=== PATIENT | male | born 1965 | race Caucasian/White ===

== ENCOUNTER → 2018-02-22 09:41 | Outpatient (CLI) | payer OTHER, SELFPAY ==
[2018-02-22 10:23] LABS: Add Manual Diff / Slide Review NO; Eosinophils Percent Auto 3.7 % (2-4); Hematocrit 45.3 % (41-53); Hemoglobin 16.1 g/dL (13.5-17.5); Lymphocytes Percent Auto 35.6 % (25-40); Mean Corpuscular HGB Conc 35.5 % (30-36); Mean Corpuscular Hemoglobin 31.3 PG (26-34); Monocytes Percent Auto 8.5 % (3-14); Neutrophils Absolute Auto 2600 /uL (3000-5900); Neutrophils Percent Auto 51.2 % (50-75); Platelet Count 240 X10^3/uL (150-400); Red Blood Cell Count 5.14 X10^6/uL (4.5-5.9); Red Cell Distribution Width 12.9 % (11.6-14.8); White Blood Cell Count 5.1 X10^3/uL (4.5-11.0)
[2018-02-22 11:30] LABS: Alanine Aminotransferase 52 IU/L (21-72); Albumin 4.3 g/dL (3.5-5.0); Albumin Globulin Ratio 1.3 (1.0-2.8); Alkaline Phosphatase 55 U/L (38-126); Aspartate Aminotransferase 29 IU/L (17-59); BUN Creatinine Ratio 16.4 (6-22); Bilirubin Total 0.7 mg/dL (0.2-1.3); Blood Urea Nitrogen 18 mg/dL (9-20); Calcium 9.3 mg/dL (8.4-10.2); Carbon Dioxide 24 mmol/L (22-32); Chloride 106 mmol/L (98-107); Cholesterol 168 mg/dL (140-199); Estimated Glomerular Filt Rate > 60.0 mL/min (>60); Globulin 3.2 g/dL (1.7-4.1); Glucose 100 mg/dL (70-100); HDL Cholesterol 35 mg/dL (40-60); HEMOLYSIS < 15 (0-50); LDL Cholesterol Calculated 94 mg/dL (<100); Potassium 4.2 mmol/L (3.4-5.1); Sodium 142 mmol/L (137-145); Total Protein 7.5 g/dL (6.3-8.2); Triglycerides 196 mg/dL (35-150)
== END ==
PROVIDERS: Family Provider Nurse Practitioner; PCP Nurse Practitioner; Visit Provider Internal Medicine
DX: E66.9 Obesity, unspecified (principal); E78.5 Hyperlipidemia, unspecified; K21.9 Gastro-esophageal reflux disease without esophagitis
CPT/HCPCS: 36415; 80053; 80061; 85025

== ENCOUNTER → 2019-02-08 16:10 | Outpatient (CLI) | payer OTHER, SELFPAY ==
--- NOTE | 2019-02-08 16:13 | DI.RAD.S_ITS ---
PROCEDURE: XR CHEST 2V INDICATIONS: cough TECHNIQUE: 2 views of the chest were acquired. COMPARISON: [facility], , CHEST 2 VIEW, 07/19/2016, 10:40. CXR 06/02/2015, 10/22/2014. FINDINGS: Surgical changes and devices: None. Lungs and pleura: Lungs are clear. Mild prominence of the pulmonary vascular markings. No pleural effusions or pneumothorax. Mediastinum: Mediastinal contours are normal. Heart size is normal. Bones and chest wall: No suspicious bony abnormalities. Soft tissues appear unremarkable. IMPRESSION: Prominence of the pulmonary vascular markings suggestive of mild fluid overload/CHF. No focal consolidation. Dictated by: Gibson Lilly M.D. on 02/08/2019 at 17:06 Approved by: Gibson Lilly M.D. on 02/08/2019 at 17:07
== END ==
PROVIDERS: PCP Internal Medicine; Visit Provider Internal Medicine
DX: R05 Cough (principal)
CPT/HCPCS: 71046

== ENCOUNTER → 2019-03-02 14:48 | Outpatient (CLI) | payer OTHER, SELFPAY ==
--- NOTE | 2019-03-09 15:02 | PM.PFT.1 ---
Pulmonary Function Test Referral & Results Date Patient Seen: 03/02/19 Requesting provider: Marquis Mccormack Indication: Cough Results: The spirometry demonstrates an FVC of 5.21 L which is 118% of predicted. The FEV1 was measured at 4.0 L which is 118% of predicted. The FEV1/FVC ratio was 77 which is 99% of predicted. Following the administration of bronchodilator there was no appreciable change to above normal numbers. Lung volumes show an SVC of 5.27 L which is 120% of predicted. The diffusing capacity was measured at 25.68 which is 90% of predicted. The maximum voluntary ventilation was normal Interpretation: This study demonstrates normal pulmonary function
== END ==
PROVIDERS: PCP Internal Medicine; Visit Provider Internal Medicine
DX: R05 Cough (principal)
CPT/HCPCS: 94060; 94726; 94729

== ENCOUNTER 2019-05-10 14:32 | Emergency (ER) | payer OTHER, SELFPAY ==
[2019-05-10 14:43] VITALS: BP 118/80; PULSE 60; RESP 12; TEMP 36.7; O2SAT 97; BMI 32.2
--- NOTE | 2019-05-10 14:43 | DI.RAD.S_ITS ---
PROCEDURE: XR CHEST 1V INDICATIONS: chest pain TECHNIQUE: One view of the chest was acquired. COMPARISON: [facility], CR, XR CHEST 2V, 02/08/2019, 16:13. FINDINGS: Surgical changes and devices: None. Lungs and pleura: Lungs are clear. No pleural effusions or pneumothorax. Mediastinum: Mediastinal contours appear normal. Heart size is normal. Bones and chest wall: No suspicious bony lesions. Overlying soft tissues appear unremarkable. IMPRESSION: No acute cardiopulmonary pathology. Dictated by: Yovanny Posey M.D. on 05/10/2019 at 15:28 Approved by: Yovanny Posey M.D. on 05/10/2019 at 15:30
--- NOTE | 2019-05-10 14:57 | PC.NURSE ---
Pt recently flew to [place]. Pt has a 6 month hx of cough and pulmonary issues. Today he is feeling more SOB than he normally does.
--- NOTE | 2019-05-10 14:58 | ED_ITS ---
HPI - Chest Pain General Chief Complaint: Chest Pain Stated Complaint: chest pains Time Seen by Provider: 05/10/19 14:39 Source: patient Mode of arrival: Ambulatory Limitations: no limitations History of Present Illness HPI narrative: Patient is a 53-year-old male who presents with left-sided chest pain which started 2 hours ago. 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 It seems to be in 1 spot constant leave there no radiation of pain. Nothing makes it better or worse. He has also been having a persistent cough for the last 6 months which is currently being worked up. He was seen by horse doctor ordered a CT of his chest which was not yet done due to a scheduling and location issue. He sometimes gets short of breath when he walks he does not know any significant worsening shortness of breath right now. [place] recently [place] 2 [place] ago. He denies any hemoptysis. No shortness of breath does not seem to be new or worse however the left-sided chest discomfort is. He is not wanting anything the chest discomfort right now. MD complaint: chest pain Onset (ago): hour(s) (2) Duration: constant Onset: during rest Pain location: left chest Severity: moderate Quality: aching Pain radiation: none Relieving factors: nothing Exacerbating factors: nothing Context: recent travel Related Data Home Medications Medication Instructions Recorded Confirmed Resmed Airsense 10 CPAP #1 ea 10/10/18 05/10/19 albuterol sulfate 1 - 2 puff INHALATION PRN PRN 05/10/19 05/10/19 atorvastatin [Lipitor] 20 mg PO BEDTIME 05/10/19 05/10/19 benzonatate 200 mg PO Q8H PRN 05/10/19 05/10/19 codeine sulfate 30 mg PO PRN PRN 05/10/19 Previous Rx's Medication Instructions Recorded fluticasone propionate 50 2 spray NASAL BEDTIME #16 gram 02/08/19 mcg/actuation nasal spray,suspension Allergies Allergy/AdvReac Type Severity Reaction Status Date / Time No Known Drug Allergies Allergy Verified 05/10/19 14:43 Review of Systems Constitutional Constitutional: Denies chills, Denies fever(s), Denies lethargy and Denies weakness ENT Ears, Nose, Mouth, and Throat: Denies change in voice, Denies neck pain and Denies sore throat Cardiovascular Cardiovascular: Reports as per HPI, Reports chest pain, Denies pedal edema, Denies edema, Denies irregular heart rhythm and Denies lightheadedness Respiratory Respiratory: Reports cough, Denies hemoptysis, Denies pain with cough and Denies wheezing Gastrointestinal Gastrointestinal: Denies abdominal pain, Denies change in bowel habits, Denies diarrhea, Denies nausea and Denies vomiting Genitourinary Genitourinary: Denies hematuria, Denies flank pain, Denies urinary incontinence and Denies urinary urgency Musculoskeletal Musculoskeletal: Denies neck pain Integumentary/Breasts Skin/Breast: Denies pruritus, Denies erythema, Denies rash and Denies wounds Neurologic Neurologic: Denies weakness Allergic/Immunologic Allergic/Immunologic: Denies wheezing Patient History Medical History Asthma (Inactive) Chicken pox (Resolved ~1975) Chronic back pain (Inactive ~1999) Chronic cough (Chronic) GERD (gastroesophageal reflux disease) (Chronic 06/29/11) Obesity (Resolved 02/04/11) Obsessive compulsive disorder (Inactive) Obstructive sleep apnea (Chronic) Other and unspecified hyperlipidemia (Chronic 06/29/11) Surgical History Anesthesia (Resolved) History of hernia repair (Resolved ~2000) Torsion of left testicle (Resolved) Umbilical hernia (Resolved ~11/2013) Family History Father History of heart disease Mother Stroke Social History marital status: number of children: 5 household members: spouse and children lives independently: Yes caregiver/support person: No housing: house pets and animals: Yes education level: master's degree occupational status: employed current occupational exposures/hazards: Yes 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 1 glass of wine a week) substance use type: does not use alcohol intake frequency: holidays/special occasions only Substance Use Type: does not use Exam Initial Vital Signs Initial Vital Signs: Vital Signs Temperature 98.0 F 05/10/19 14:43 Pulse Rate 60 05/10/19 14:43 Respiratory Rate 12 05/10/19 14:43 Blood Pressure 118/80 05/10/19 14:43 Pulse Oximetry 97 05/10/19 14:43 GENERAL: Alert well-appearing middle-aged male no acute distress HEENT: Head atraumatic,EOMI, pupils reactive, face symmetric, moist mucous membranes CARDIOVASCULAR: Regular rate and rhythm without murmurs, rubs or gallops. Pain is not reproducible to palpation RESPIRATORY: Breath sounds equal bilaterally, no wheezes rales or rhonchi. ABDOMEN: Soft, nontender. Normoactive bowel sounds all 4 quadrants. No guarding or rebound. EXTREMITIES: Normal range of motion, no clubbing or edema. Neurovascularly intact NEUROLOGICAL: Alert and oriented x4.Normal gait and speech. SKIN: Warm, dry, no laceration, no petechiae, no rashes or lesions. Scores HEART Score Heart Score history: Slightly Suspicious Heart Score EKG: Normal Heart Score Age: 45-64 years old Heart Score risk factors: No known risk factors Heart Score troponin: < or = to normal limit Heart Score Total: 1 Course Orders Ordered: ED Orders 05/10/19 14:43 XR chest 1V Stat EKG-12 Lead Stat 05/10/19 14:50 B Type Natriuretic Peptide Stat Complete Blood Count AUTO DIFF Stat Comprehensive Metabolic Panel Stat Lipase Stat Partial Thromboplastin Time Stat Prothrombin Time INR Stat Troponin & CK Cardiac Panel Stat 05/10/19 15:09 CT angio chest PE protocol Stat 05/10/19 16:55 Troponin I Stat Vital Signs Vital signs: Vital Signs - 8 hr 05/10/19 14:43 05/10/19 14:59 05/10/19 15:00 Temperature 98.0 F Pulse Rate 60 76 71 Respiratory Rate 12 19 15 Blood Pressure 118/80 Blood Pressure [Right Arm] 118/80 120/77 Pulse Oximetry 97 93 MDM - Chest Pain Lab Data Attestation: I reviewed the patient's lab results. Result diagrams: 05/10/19 14:50 05/10/19 14:50 Labs: Lab Results 05/10/19 05/10/19 05/10/19 Range/Units 14:50 14:50 14:50 WBC 6.0 (4.5-11.0) X10^3/uL RBC 4.99 (4.5-5.9) X10^6/uL Hgb 15.6 (13.5-17.5) g/dL Hct 44.6 (41-53) % MCV 89.4 (80-100) fL MCH 31.2 (26-34) PG MCHC 34.9 (30-36) % RDW 13.2 (11.6-14.8) % Plt Count 246 (150-400) X10^3/uL Neut % (Auto) 56.3 (50-75) % Lymph % (Auto) 31.9 (25-40) % [place] % (Auto) 7.9 (3-14) % Eos % (Auto) 3.0 (2-4) % Baso % (Auto) 0.9 (0-2) % Neut # (Auto) 3400 (9910-2467) /uL Lymph # (Auto) 1900 (5418-6171) /uL [place] # (Auto) 500 (0-900) /uL Eos # (Auto) 200 (0-450) /uL Baso # (Auto) 100 (0-100) /uL PT 10.9 (10.1-12.7) SECONDS INR 0.9 (0.9-1.3) APTT 31 (26.4-36.2) SECONDS Sodium 139 (137-145) mmol/L Potassium 4.0 (3.4-5.1) mmol/L Chloride 105 (98-107) mmol/L Carbon Dioxide 25 (22-32) mmol/L BUN 20 (9-20) mg/dL Creatinine 1.00 (0.66-1.25) mg/dL Estimated GFR > 60.0 (>60) mL/min BUN/Creatinine Ratio 20.0 (6-22) Glucose 92 (70-100) mg/dL Calcium 9.5 (8.4-10.2) mg/dL Total Bilirubin 0.6 (0.2-1.3) mg/dL AST 37 (17-59) IU/L ALT 49 (<50) IU/L Alkaline Phosphatase 55 (38-126) U/L Total Creatine Kinase 182 H (55-170) U/L CK-MB (CK-2) 1.78 (<2.37) ng/mL CK-MB (CK-2) Rel Index 1.0 L (1.5-5.0) % Troponin I < 0.012 (0.01-0.034) ng/mL B-Natriuretic Peptide (<100) Total Protein 7.7 (6.3-8.2) g/dL Albumin 4.8 (3.5-5.0) g/dL Globulin 2.9 (1.7-4.1) g/dL Albumin/Globulin Ratio 1.7 (1.0-2.8) Lipase 110 (23-300) U/L 05/10/19 05/10/19 Range/Units 14:50 16:55 WBC (4.5-11.0) X10^3/uL RBC (4.5-5.9) X10^6/uL Hgb (13.5-17.5) g/dL Hct (41-53) % MCV (80-100) fL MCH (26-34) PG MCHC (30-36) % RDW (11.6-14.8) % Plt Count (150-400) X10^3/uL Neut % (Auto) (50-75) % Lymph % (Auto) (25-40) % [place] % (Auto) (3-14) % Eos % (Auto) (2-4) % Baso % (Auto) (0-2) % Neut # (Auto) (7301-4183) /uL Lymph # (Auto) (7435-2600) /uL [place] # (Auto) (0-900) /uL Eos # (Auto) (0-450) /uL Baso # (Auto) (0-100) /uL PT (10.1-12.7) SECONDS INR (0.9-1.3) APTT (26.4-36.2) SECONDS Sodium (137-145) mmol/L Potassium (3.4-5.1) mmol/L Chloride (98-107) mmol/L Carbon Dioxide (22-32) mmol/L BUN (9-20) mg/dL Creatinine (0.66-1.25) mg/dL Estimated GFR (>60) mL/min BUN/Creatinine Ratio (6-22) Glucose (70-100) mg/dL Calcium (8.4-10.2) mg/dL Total Bilirubin (0.2-1.3) mg/dL AST (17-59) IU/L ALT (<50) IU/L Alkaline Phosphatase (38-126) U/L Total Creatine Kinase (55-170) U/L CK-MB (CK-2) (<2.37) ng/mL CK-MB (CK-2) Rel Index (1.5-5.0) % Troponin I < 0.012 (0.01-0.034) ng/mL B-Natriuretic Peptide < 100 (<100) Total Protein (6.3-8.2) g/dL Albumin (3.5-5.0) g/dL Globulin (1.7-4.1) g/dL Albumin/Globulin Ratio (1.0-2.8) Lipase (23-300) U/L Imaging Data Chest x-ray: Radiologist's impression: PROCEDURE: XR CHEST 1V INDICATIONS: chest pain TECHNIQUE: One view of the chest was acquired. COMPARISON: [facility], CR, XR CHEST 2V, 02/08/2019, 16:13. FINDINGS: Surgical changes and devices: None. Lungs and pleura: Lungs are clear. No pleural effusions or pneumothorax. Mediastinum: Mediastinal contours appear normal. Heart size is normal. Bones and chest wall: No suspicious bony lesions. Overlying soft tissues appear unremarkable. IMPRESSION: No acute cardiopulmonary pathology. Dictated by: Yovanny Posey M.D. on 05/10/2019 at 15:28 CT scan - chest: Radiologist's impression: PROCEDURE: CT ANGIO CHEST PE PROTOCOL INDICATIONS: shortness of breath chest pain TECHNIQUE: After the administration of intravenous contrast, 2 mm thick sections acquired from the pulmonary apices to the posterior costophrenic angles. 3-dimensional maximum intensity projection (MIP) coronal and sagittal reformats were then acquired through the thorax. For radiation dose reduction, the following was used: automated exposure control, adjustment of mA and/or kV according to patient size. COMPARISON: [facility], CR, XR CHEST 1V, 05/10/2019, 14:50. [facility], CT, CHEST ABDOMEN WITH CONTRAST, 10/28/2008, 16:38. [facility], CT, PE STUDY (CTA CHEST), 07/15/2012, 13:01. FINDINGS: Image quality: Excellent. Pulmonary arteries: Pulmonary arteries are normal in size, and demonstrate no intraluminal filling defects to suggest central pulmonary embolism. Lungs and pleura: Lungs are clear. There are a couple of nodules in the right lower lobe measuring 4 mm and 5 mm (series 5 image 167 and 211); both are slightly enlarged since 07/15/2012 (both previously measured 3 mm). There is a 5 mm nodule in the left lower lobe (series 5 image 202) unchanged since 07/15/2012. No pleural effusions or pneumothorax. Central and peripheral airways are patent. Mediastinum: Heart size is normal, without pericardial effusion. No mediastinal or hilar adenopathy. Thoracic aorta is normal in caliber and enhancement. Esophagus is normal in caliber, without hiatal hernia. Bones and chest wall: No suspicious bony lesions. Ribs and thoracic spine appear intact throughout. Thyroid gland is normal. No axillary or supraclavicular adenopathy. Abdomen: Visualized upper abdominal solid organs appear normal in the early arterial phase of enhancement. There is a 9 mm low density nodule in central liver, probably a cyst. IMPRESSION: 1. No evidence for acute pulmonary embolism. 2. Bilateral subcentimeter pulmonary nodules in lower lobes. The right lower lobe nodules demonstrate minimal interval enlargement since 07/15/2012. The left lower lobe nodule has been stable. These nodules are most likely benign. 3. A 9 mm low density nodule in the central liver, statistically likely a cyst. Dictated by: Kandy Barry M.D. on 05/10/2019 at 15:58 ECG Data Attestation: I personally reviewed and interpreted this ECG as follows: Prior ECG tracings: available for review Interpretation: Normal sinus rhythm rate 65 p.r. interval [address] changes no T-wave inversions similar to previous EKGs MDM Narrative Medical decision making narrative: The patient's pain is improved. He has 2- troponins normal EKG CT is negative. At this time I recommend he follow up with his horse doctor. He is given a disc of his CT. Patient was not noted to have cough while in the ED. However with the amount of coughing that he is describing is possible that chest pain is more related to musculoskeletal issues such as costochondritis. I discussed all findings with the patient and spouse, Education has been performed regarding treatment plan, diagnosis, warning signs and symptoms and all concerns have been addressed. Verbally agree with and understood all of the above. Discharge Plan Departure Patient Disposition: Home Clinical Impression: Atypical chest pain Discharge Date/Time: 05/10/19 17:54 Instructions: DI for Atypical Chest Pain Activity Restrictions/Additional Instructions: *You have been diagnosed with atypical chest pain *What to do: At this time you are low risk for cardiac issue however it is still recommended that follow up with her PCP you may require further cardiac evaluation and testing. You did not have a stress test today Please call your horse doctor you have been given a copy of CT and the report *Continue to take medications as directed *Follow up with your primary care provider in 2-3 days *Return to ER if you should have worsening chest pain, increasing shortness of breath or any new, worsening or concerning symptoms Prescriptions: No Action fluticasone propionate 50 mcg/actuation spray,suspension 2 spray NASAL BEDTIME Qty: 16 RF: 0 benzonatate 200 mg capsule 200 mg PO Q8H PRN (Reason: Cough) RF: 0 codeine sulfate 30 mg tablet 30 mg PO PRN PRN (Reason: Cough) RF: 0 albuterol sulfate 90 mcg/actuation HFA aerosol inhaler 1 - 2 puff INHALATION PRN PRN (Reason: Shortness Of Breath) RF: 0 atorvastatin [Lipitor] 20 mg tablet 20 mg PO BEDTIME RF: 0 (DME) Resmed Airsense 10 CPAP Qty: 1 RF: 0 Referrals: Marquis Mccormack MD [Primary Care Provider] -
[2019-05-10 14:59] VITALS: BP 118/80; PULSE 76; RESP 19; O2SAT 93
[2019-05-10 15:00] VITALS: BP 120/77; PULSE 71; RESP 15
[2019-05-10 15:01] LABS: Add Manual Diff / Slide Review NO; Basophils Absolute Auto 100 /uL (0-100); Basophils Percent Auto 0.9 % (0-2); Eosinophils Absolute Auto 200 /uL (0-450); Hematocrit 44.6 % (41-53); Hemoglobin 15.6 g/dL (13.5-17.5); Lymphocytes Absolute Auto 1900 /uL (1100-4500); Lymphocytes Percent Auto 31.9 % (25-40); Mean Corpuscular HGB Conc 34.9 % (30-36); Mean Corpuscular Hemoglobin 31.2 PG (26-34); Mean Corpuscular Volume 89.4 fL (80-100); Monocytes Absolute Auto 500 /uL (0-900); Monocytes Percent Auto 7.9 % (3-14); Neutrophils Absolute Auto 3400 /uL (1500-7000); Neutrophils Percent Auto 56.3 % (50-75); Platelet Count 246 X10^3/uL (150-400); Red Blood Cell Count 4.99 X10^6/uL (4.5-5.9); Red Cell Distribution Width 13.2 % (11.6-14.8)
--- NOTE | 2019-05-10 15:06 | PC.NURSE ---
reports, coughing since december, today with left chest discomfort. had pulmonary exam, respiratory albuterol without relief. has been traveling from [place] and [place], denies fever. vomiting due to coughing. spouse at bs. alert and awake, skin warm dry pink,
--- NOTE | 2019-05-10 15:09 | DI.CT.S_ITS ---
PROCEDURE: CT ANGIO CHEST PE PROTOCOL INDICATIONS: shortness of breath chest pain TECHNIQUE: After the administration of intravenous contrast, 2 mm thick sections acquired from the pulmonary apices to the posterior costophrenic angles. 3-dimensional maximum intensity projection (MIP) coronal and sagittal reformats were then acquired through the thorax. For radiation dose reduction, the following was used: automated exposure control, adjustment of mA and/or kV according to patient size. COMPARISON: [facility], CR, XR CHEST 1V, 05/10/2019, 14:50. [facility], CT, CHEST ABDOMEN WITH CONTRAST, 10/28/2008, 16:38. [facility], CT, PE STUDY (CTA CHEST), 07/15/2012, 13:01. FINDINGS: Image quality: Excellent. Pulmonary arteries: Pulmonary arteries are normal in size, and demonstrate no intraluminal filling defects to suggest central pulmonary embolism. Lungs and pleura: Lungs are clear. There are a couple of nodules in the right lower lobe measuring 4 mm and 5 mm (series 5 image 167 and 211); both are slightly enlarged since 07/15/2012 (both previously measured 3 mm). There is a 5 mm nodule in the left lower lobe (series 5 image 202) unchanged since 07/15/2012. No pleural effusions or pneumothorax. Central and peripheral airways are patent. Mediastinum: Heart size is normal, without pericardial effusion. No mediastinal or hilar adenopathy. Thoracic aorta is normal in caliber and enhancement. Esophagus is normal in caliber, without hiatal hernia. Bones and chest wall: No suspicious bony lesions. Ribs and thoracic spine appear intact throughout. Thyroid gland is normal. No axillary or supraclavicular adenopathy. Abdomen: Visualized upper abdominal solid organs appear normal in the early arterial phase of enhancement. There is a 9 mm low density nodule in central liver, probably a cyst. IMPRESSION: 1. No evidence for acute pulmonary embolism. 2. Bilateral subcentimeter pulmonary nodules in lower lobes. The right lower lobe nodules demonstrate minimal interval enlargement since 07/15/2012. The left lower lobe nodule has been stable. These nodules are most likely benign. 3. A 9 mm low density nodule in the central liver, statistically likely a cyst. Dictated by: Kandy Barry M.D. on 05/10/2019 at 15:58 Approved by: Kandy Barry M.D. on 05/10/2019 at 16:10
[2019-05-10 15:12] LABS: INR 0.9 (0.9-1.3); Prothrombin Time 10.9 SECONDS (10.1-12.7)
[2019-05-10 15:14] LABS: PTT Partial Thromboplastin Tim 31 SECONDS (26.4-36.2)
[2019-05-10 15:15] LABS: Alanine Aminotransferase 49 IU/L (<50); Albumin 4.8 g/dL (3.5-5.0); Albumin Globulin Ratio 1.7 (1.0-2.8); Alkaline Phosphatase 55 U/L (38-126); Aspartate Aminotransferase 37 IU/L (17-59); Bilirubin Total 0.6 mg/dL (0.2-1.3); Blood Urea Nitrogen 20 mg/dL (9-20); Calcium 9.5 mg/dL (8.4-10.2); Carbon Dioxide 25 mmol/L (22-32); Chloride 105 mmol/L (98-107); Creatine Kinase 182 U/L (55-170); Estimated Glomerular Filt Rate > 60.0 mL/min (>60); Globulin 2.9 g/dL (1.7-4.1); Glucose 92 mg/dL (70-100); HEMOLYSIS < 15 (0-50); Lipase 110 U/L (23-300); Sodium 139 mmol/L (137-145); Total Protein 7.7 g/dL (6.3-8.2)
[2019-05-10 15:27] LABS: Troponin I < 0.012 ng/mL (0.01-0.034)
[2019-05-10 15:31] LABS: Creatine Kinase MB 1.78 ng/mL (<2.37)
[2019-05-10 15:38] LABS: B Type Natriuretic Peptide < 100 (<100)
[2019-05-10 17:24] LABS: Troponin I < 0.012 ng/mL (0.01-0.034)
== END 2019-05-10 17:54 | disposition home or self-care (01) ==
PROVIDERS: Emergency Provider Emergency Medicine; PCP Internal Medicine
DX: R07.89 Other chest pain (principal); R06.02 Shortness of breath; R05 Cough
CPT/HCPCS: 36415; 71045; 71275; 80053; 82550; 82553; 83690; 83880; 84484; 85025; 85610; 85730; 93005; 93010; 99283; 99285; Q9967

== ENCOUNTER → 2019-07-23 16:15 | Outpatient (CLI) | payer OTHER, SELFPAY ==
--- NOTE | 2019-07-23 16:17 | DI.RAD.S_ITS ---
PROCEDURE: XR WRIST LT MIN 3V INDICATIONS: left wrist pain for 1 month TECHNIQUE: 4 views of the wrist were acquired. COMPARISON: None. FINDINGS: Bones: No fractures or dislocations. No suspicious bony lesions. Scaphoid view: No trauma the scaphoid and is found. Soft tissues: No suspicious soft tissue calcifications. IMPRESSION: Source of persistent wrist pain is not seen. No trauma found. Dictated by: Hardik Gardiner M.D. on 07/23/2019 at 17:37 Approved by: Hardik Gardiner M.D. on 07/23/2019 at 17:38
== END ==
PROVIDERS: PCP Internal Medicine; Visit Provider Internal Medicine
DX: M25.532 Pain in left wrist (principal)
CPT/HCPCS: 73110

== ENCOUNTER → 2019-09-11 13:46 | Outpatient (CLI) | payer OTHER, SELFPAY ==
--- NOTE | 2019-09-11 | DI.MRI.S_ITS ---
PROCEDURE: MR WRIST LT W CON INDICATIONS: Pain in left wrist TECHNIQUE: After the administration of 3-4 mL of dilute intra-articular Gadolinium contrast into the radiocarpal compartment, coronal T1 spin echo with fat saturation and T2 fast spin echo with fat saturation, axial T1 spin echo and T2 fast spin echo with fat saturation, sagittal T1 spin echo with and without fat saturation through the wrist. COMPARISON: [facility], , [place] WRIST INJECTION MR/CT LT, 09/11/2019, 13:09. FINDINGS: Image quality: Excellent. Bones and cartilage: The carpal bones are normally aligned. No bone marrow contusions or fractures. No evidence for avascular necrosis. Proximal lunate subchondral mild cystic change. Overlying cartilage surfaces appear normal. Carpal ligaments: The scapholunate and lunotriquetral ligaments appear intact, without gadolinium extravasation into the mid-carpal compartment. The radioscaphocapitate and radiolunotriquetral ligaments appear intact. The arcuate ligament and short radiolunate ligament also appear normal. The dorsal intercarpal and radiotriquetral ligaments appear intact. On sagittal images, the pisohamate ligament appears intact. Triangular fibrocartilage complex: The triangular fibrocartilage disc, with its styloid and foveal lamina, appears intact. No gadolinium extravasation into the distal radioulnar joint. The adjacent meniscal homolog appears normal. The ulnar collateral ligament appears intact. The extensor carpi ulnaris tendon is normal in location and morphology. Tendons and soft tissues: The carpal tunnel structures appear normal, including the median nerve. The ulnar nerve appears normal within Guyon's canal. All six extensor tendon compartments demonstrate normal morphology, without pathologic tendon sheath fluid. No soft tissue ganglion cysts. IMPRESSION: Overall, negative examination. No internal derangement. Questionable mild subchondral cystic change at the proximal lunate. Dictated by: Clem Alba M.D. on 09/11/2019 at 16:33 Approved by: Clem Alba M.D. on 09/11/2019 at 16:40
--- NOTE | 2019-09-11 | DI.RAD.S_ITS ---
PROCEDURE: [place] WRIST INJECTION MR/CT LT INDICATIONS: Pain in left wrist TECHNIQUE: After informed consent had been obtained, the wrist was examined fluoroscopically, and a site chosen for injection of the radiocarpal compartment from a dorsal approach. Skin was prepped and draped in a sterile fashion and 1% lidocaine infiltrated from the skin down to the articular surface. A hypodermic needle was then introduced into the articular space and a modest amount of contrast medium was instilled confirming intra-articular needle tip placement. This was followed by approximately 4 mL of a dilute gadolinium solution. Needle was removed and dressing was applied. The patient experienced no complications throughout the procedure and left the fluoroscopic suite in no apparent distress. FINDINGS: A single fluoroscopic spot image demonstrates intra-articular location to injected iodinated contrast. IMPRESSION: Successful fluoroscopic-guided administration of dilute Gadolinium solution for wrist MR arthrogram. Dictated by: Clem Alba M.D. on 09/11/2019 at 17:02 Approved by: Clem Alba M.D. on 09/11/2019 at 17:02
== END ==
PROVIDERS: PCP Internal Medicine; Referring Provider Orthopaedic Surgery; Visit Provider Orthopaedic Surgery
DX: M25.532 Pain in left wrist (principal)
CPT/HCPCS: 20605; 73222; 76000

== ENCOUNTER → 2020-03-17 16:36 | Outpatient (CLI) | payer OTHER, SELFPAY ==
[2020-03-17 16:45] LABS: Bacteria Urine None Seen; RBC Urine None Seen (0-5/HPF); WBC Urine None Seen (0-5/HPF)
[2020-03-17 17:29] LABS: Appearance Urine UA CLEAR; Bilirubin Urine UA NEGATIVE (NEGATIVE); Color Urine UA YELLOW; Glucose Urine UA NEGATIVE (Negative); Ketones Urine UA NEGATIVE (NEGATIVE); Leukocyte Esterase Urine UA NEGATIVE (NEGATIVE); Nitrite Urine UA NEGATIVE (Negative); Occult Blood Urine UA NEGATIVE (Negative); Protein Urine UA NEGATIVE (Negative); Specific Gravity Urine UA 1.025 (1.000-1.035); Urobilinogen Urine UA 0.2 E.U./dL (0.2)
[2020-03-17 18:10] LABS: Alanine Aminotransferase 59 IU/L (<50); Albumin 4.3 g/dL (3.5-5.0); Albumin Globulin Ratio 1.3 (1.0-2.8); Alkaline Phosphatase 65 U/L (38-126); Aspartate Aminotransferase 35 IU/L (17-59); BUN Creatinine Ratio 23.6 (6-22); Bilirubin Total 0.5 mg/dL (0.2-1.3); Blood Urea Nitrogen 26 mg/dL (9-20); Calcium 9.1 mg/dL (8.4-10.2); Carbon Dioxide 24 mmol/L (22-32); Chloride 106 mmol/L (98-107); Estimated Glomerular Filt Rate > 60.0 mL/min (>60); Globulin 3.4 g/dL (1.7-4.1); Glucose 113 mg/dL (70-100); HEMOLYSIS < 15 (0-50); Potassium 3.9 mmol/L (3.4-5.1); Sodium 139 mmol/L (137-145); Total Protein 7.7 g/dL (6.3-8.2)
[2020-03-17 18:31] LABS: Culture Indicated Urine Cult Not Indicated
== END ==
PROVIDERS: PCP Internal Medicine; Referring Provider Internal Medicine; Visit Provider Internal Medicine
DX: N13.8 Other obstructive and reflux uropathy (principal); N40.1 Benign prostatic hyperplasia with lower urinary tract symptoms; R35.0 Frequency of micturition
CPT/HCPCS: 36415; 80053; 81001; 84153

== ENCOUNTER 2021-07-28 16:23 | Emergency (ER) | payer OTHER, SELFPAY ==
[2021-07-28 16:28] VITALS: BP 130/87; PULSE 82; RESP 18; TEMP 36.6; O2SAT 97; BMI 31.9
--- NOTE | 2021-07-28 16:49 | DI.RAD.S_ITS ---
PROCEDURE: XR LUMBAR SPINE 2-3V INDICATIONS: acute on chronic LBP TECHNIQUE: 3 views of the lumbar spine were acquired. COMPARISON: None. FINDINGS: Bones: 5 [id number] vertebrae are present. There is normal bony alignment. No vertebral body compression fractures. No suspicious bony lesions. Soft tissues: Overlying bowel gas pattern is normal. No suspicious soft tissue calcifications. IMPRESSION: Unremarkable lumbar spine radiographs Approved by: Bennie Bernal M.D. on 07/28/2021 at 17:04
--- NOTE | 2021-07-28 16:50 | ED_ITS ---
HPI - Back Pain/Injury <DENIS Becker - Last Filed: 07/28/21 21:18> General Chief Complaint: Back Pain/Injury Stated Complaint: back pain Time Seen by Provider: 07/28/21 16:32 Source: patient History of Present Illness HPI Narrative: 55-year-old male presents to the emergency department with acute on chronic low back pain which started 3 days ago. Patient states he has a history of a low back injury while moving logs many years ago and states he has had a few episodes of his back going out needing emergency department care to feel better. 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 Patient states that if he is lying supine he is in 0 pain, but occasionally he has a big spasm which is unpredictable and he feels 12/10 pain when that happens. Patient denies taking any medication today, he does not take pain medication for his low back pain at baseline, he states that it is sometimes there and bothersome but never this sharp and constant. He denies any fever, nausea or vomiting, chest pain, shortness of breath, abdominal pain. He denies a history of kidney stones, dysuria, or urinary retention. He denies any numbness or tingling, dizziness, other symptoms or any trauma. Related Data Home Medications Medication Instructions Recorded Confirmed Resmed Airsense 10 CPAP #1 ea 10/10/18 02/12/21 Previous Rx's Medication Instructions Recorded fluvoxamine 100 mg tablet 200 mg PO BEDTIME #60 tab 02/12/21 atorvastatin 20 mg tablet (Lipitor) 20 mg PO BEDTIME #90 tab 03/02/21 lidocaine 4 % topical patch 1 patch TOPICAL DAILY PRN #15 ea 07/28/21 methocarbamol 500 mg tablet 500 mg PO Q8H #20 tab 07/28/21 naproxen 250 mg tablet 250 mg PO BID PRN #20 tab 07/28/21 omeprazole 20 mg capsule,delayed 20 mg PO DAILY #10 cap 07/28/21 release prednisone 20 mg tablet 40 mg PO DAILY #10 tab 07/28/21 Allergies Allergy/AdvReac Type Severity Reaction Status Date / Time No Known Drug Allergies Allergy Verified 02/12/21 15:52 Review of Systems <DENIS Becker - Last Filed: 07/28/21 21:18> Review of Systems Narrative: General: denies fever, chills, malaise, sweats, fatigue Head/Neck: denies headache, neck pain, dizziness Eyes: denies visual changes, eye pain Cardio: denies chest pain, palpitations, edema Respiratory: denies dyspnea, cough, orthopnea GI: denies abdominal pain, nausea, vomiting, or diarrhea : denies dysuria, hematuria, urinary retention, frequency or incontinence MSK: denies joint pain, muscle weakness, numbness or tingling Skin: denies rash, itching, skin lesions or other Neuro: denies numbness, tingling, weakness in his gait, limitations to ROM Patient History <DENIS Becker - Last Filed: 07/28/21 21:18> Medical History Chicken pox (~1975) Chronic back pain (~1999) Chronic cough GERD (gastroesophageal reflux disease) (06/29/11) Obesity (02/04/11) Obesity (BMI 30-39.9) (~02/04/11) Obsessive compulsive disorder Obstructive sleep apnea Other and unspecified hyperlipidemia (06/29/11) Surgical History Anesthesia History of hernia repair (~2000) Torsion of left testicle Umbilical hernia (~11/2013) Family History Father History of heart disease Mother Stroke Social History marital status: details: Patient was adopted; family medical history unknown number of children: 5 household members: spouse and children lives independently: Yes caregiver/support person: No housing: house pets and animals: Yes education level: master's degree occupational status: employed current occupational exposures/hazards: Yes Previous occupational history: Teacher at [employer] tim/amish: [employer] leisure activities: sports, music and fishing Smoking Status: Former smoker Tobacco: How many years used: 15 Smokeless tobacco user: other quit status: quit date established alcohol intake: current substance use type: does not use Smoking Status: Former smoker alcohol intake frequency: holidays/special occasions only Substance Use Type: does not use Exam <DENIS Becker - Last Filed: 07/28/21 21:18> Narrative Exam Narrative: Independently reviewed vitals signs and nursing notes. General: Awake, alert, well-nourished and developed, nontoxic, no cardiorespiratory distress Head/Neck: Atraumatic, neck full range of motion, trachea midline, no JVD or lymphadenopathy. Supple, nontender, no meningeal signs. Eyes: Pupils equal round and reactive, EOMI, conjunctiva normal, no scleral icterus or injections Nose: nares patent, no rhinorrhea, without purulent drainage or septal hematoma. Mouth/Throat: uvula midline, moist mucus membranes, posterior pharynx normal, no oral lesions, airway patent Cardio: Regular rate and rhythm, no peripheral edema Respiratory: respirations unlabored without wheezing, stridor, or rales. No retractions. GI: Abdomen soft, nontender, nondistended, no hepato-spenomegaly MSK: Moves all extremities, neurovascularly intact, no flank tenderness, bilateral leg lift exacerbate symptoms in his low back, no spinal tenderness, no CVA tenderness, muscle tension bilateral lumbar sacral spine Skin: Normal capillary refill, no rash Neuro: Normal speech and cognition, normal gait, A&O x3 Initial Vital Signs Initial Vital Signs: Vital Signs Temperature 97.8 F 07/28/21 16:28 Pulse Rate 82 07/28/21 16:28 Respiratory Rate 18 07/28/21 16:28 Blood Pressure 130/87 07/28/21 16:28 Pulse Oximetry 97 07/28/21 16:28 <Lexy Montana DO - Last Filed: 07/31/21 23:58> Initial Vital Signs Initial Vital Signs: Vital Signs Temperature 97.8 F 07/28/21 16:28 Pulse Rate 82 07/28/21 16:28 Respiratory Rate 18 07/28/21 16:28 Blood Pressure 130/87 07/28/21 16:28 Pulse Oximetry 97 07/28/21 16:28 Course <DENIS Becker - Last Filed: 07/28/21 21:18> Orders Ordered: Discontinued Medications Ketorolac Tromethamine (Ketorolac 30 Mg/Ml Vial) 30 mg IM NOW ONE Stop: 07/28/21 16:49 Last Admin: 07/28/21 17:12 Dose: 30 mg Documented by: MARILUZ Lidocaine (Lidocaine Patch 1 Each Adh..Patch) 1 each TOP NOW ONE Stop: 07/28/21 16:49 Last Admin: 07/28/21 17:13 Dose: 1 each Documented by: MARILUZ Methocarbamol (Methocarbamol 500 Mg Tablet) 500 mg PO NOW ONE Stop: 07/28/21 16:49 Last Admin: 07/28/21 17:12 Dose: 500 mg Documented by: MARILUZ Prednisone (Prednisone 20 Mg Tablet) 60 mg PO NOW ONE Stop: 07/28/21 16:49 Last Admin: 07/28/21 17:12 Dose: 60 mg Documented by: MARILUZ Vital Signs Vital signs: Vital Signs - 8 hr 07/28/21 16:28 07/28/21 18:23 Temperature 97.8 F Pulse Rate 82 71 Respiratory Rate 18 18 Blood Pressure 130/87 123/79 Pulse Oximetry 97 97 <Lexy Montana, - Last Filed: 07/31/21 23:58> Orders Ordered: Discontinued Medications Ketorolac Tromethamine (Ketorolac 30 Mg/Ml Vial) 30 mg IM NOW ONE Stop: 07/28/21 16:49 Last Admin: 07/28/21 17:12 Dose: 30 mg Documented by: MARILUZ Lidocaine (Lidocaine Patch 1 Each Adh..Patch) 1 each TOP NOW ONE Stop: 07/28/21 16:49 Last Admin: 07/28/21 17:13 Dose: 1 each Documented by: MARILUZ Methocarbamol (Methocarbamol 500 Mg Tablet) 500 mg PO NOW ONE Stop: 07/28/21 16:49 Last Admin: 07/28/21 17:12 Dose: 500 mg Documented by: MARILUZ Prednisone (Prednisone 20 Mg Tablet) 60 mg PO NOW ONE Stop: 07/28/21 16:49 Last Admin: 07/28/21 17:12 Dose: 60 mg Documented by: MARILUZ Vital Signs Vital signs: Vital Signs - 8 hr 07/28/21 16:28 07/28/21 18:23 Temperature 97.8 F Pulse Rate 82 71 Respiratory Rate 18 18 Blood Pressure 130/87 123/79 Pulse Oximetry 97 97 MDM - Back Pain/Injury <Ashlee Sales, [facility] - Last Filed: 07/28/21 21:18> Imaging Data Extremity x-ray #1: Radiologist's Impression: PROCEDURE:? XR LUMBAR SPINE 2-3V ? INDICATIONS:? acute on chronic LBP ? TECHNIQUE:? 3 views of the lumbar spine were acquired.? ? COMPARISON:? None. ? FINDINGS:? ? Bones:? 5 [id number] vertebrae are present.? There is normal bony alignment.? No vertebral body compression fractures.? No suspicious bony lesions.? ? Soft tissues:? Overlying bowel gas pattern is normal.? No suspicious soft tissue calcifications.? ? ? IMPRESSION:? Unremarkable lumbar spine radiographs ? ? ? Approved by: Bennie Bernal M.D. on 07/28/2021 at 17:04? [facility] Narrative Medical decision making narrative: 55-year-old male presents emergency department with acute exacerbation of low back pain which started 3 days ago and has been getting worse. He denies any r ecent trauma, states he has a years ago injury of lifting a log in feeling a tearing sensation in his low back/sacrum and ever since he has occasional flares of his low back pain which he has had trigger the emergency department for. Today patient's x-ray was negative for acute fracture and was a unremarkable lumbar spine radiograph according to the radiologist. Patient was given a lidocaine patch, Toradol, prednisone and methocarbamol with moderate relief of his symptoms. Patient was able to ambulate out of the emergency department without deficit. Patient has had no incontinence, no weakness in his lower extremities, no sensation changes, no fever, and no new symptom associated with this low back flare other than pain. I gave him a prescription for Prilosec while he is taking steroids and naproxen to prevent gastric ulcer. Multiple etiologies of back pain considered including; Epidural abscess, cauda equina, mass occupying lesion, lumbar fracture, intra-abdominal pathology chronic neuropathic pain and other considered. Patient is appropriate and amenable to discharge home. Vital signs are stable on repeat examination is unremarkable. Patient has been informed of results. Patient has been given strict return to ER precautions for any new or worsening symptoms. Patient understands to follow up closely with outpatient providers as instructed. Patient understands plan and agrees to discharge home. All questions and concerns answered at this time. Discharge Plan Departure Patient Disposition: Home Clinical Impression: Acute back pain Strain of lumbar region Qualifiers: Encounter type: initial encounter Qualified Code(s): S39.012A - Strain of muscle, fascia and tendon of lower back, initial encounter Instructions: DI for Low Back Pain, DI for Back Spasm Activity Restrictions/Additional Instructions: *You have been diagnosed with acute low back pain with spasms. I hope you start feeling better soon. Please use heating packs, stay hydrated, take food with your medicine except for omeprazole,, take that before food in the morning to help prevent an ulcer while on these other medications which may cause stomach irritation. Please do not drive while using muscle relaxers, please follow-up with Dr. Mccormack for outpatient therapies like physical therapy, advanced imaging, medication or other. Your x-ray showed normal bony alignment, no fractures, no osteoarthritis was called out by the radiologist or degenerative changes either, so maybe you aren't old yet. *What to do: *Please continue to take your regular medications as directed. [x ] New medication prescriptions sent to your pharmacy: [ [facility]] [ ] New medication written as a paper prescription [ ] No new medications given *Please follow up with your primary care provider in 2-3 days, call for an appointment. Let them know you were seen in the Emergency Department and that we ask that you be seen in follow up. We will electronically transmit a record of today's note if your PCP is in our system *If you do not have a primary care provider please contact the [facility] Resource line at [phone]. They will ask some questions about your medical history and help get you set up with a doctor in the community. *Return to Emergency Department if you should have any new, worsening or concerning symptoms, such as [fever greater than 101F, chills, worsening pain, persistent vomiting or other bothersome symptoms] Prescriptions: New prednisone 20 mg tablet 40 mg PO DAILY Qty: 10 0RF naproxen 250 mg tablet 250 mg PO BID PRN (Reason: pain) Qty: 20 0RF omeprazole 20 mg capsule,delayed release(DR/EC) 20 mg PO DAILY Qty: 10 0RF lidocaine 4 % adhesive patch,medicated 1 patch topical DAILY PRN (Reason: pain) Qty: 15 0RF methocarbamol 500 mg tablet 500 mg PO Q8H Qty: 20 0RF No Action fluvoxamine 100 mg tablet 200 mg PO BEDTIME Qty: 60 3RF atorvastatin [Lipitor] 20 mg tablet 20 mg PO BEDTIME Qty: 90 1RF (DME) Resmed Airsense 10 CPAP Qty: 1 0RF Dose Instruction: As directed Label Comments: Pressure: 6-12 cmH2O DME: [facility] Rx Instructions: As directed Referrals: [facility] [Provider Group] - 5-7 days (if not improving, ask for Dr. Levi) Edilma Levi MD [Physician] - Marquis Mccormack MD [Primary Care Provider] - <Lexy Montana DO - Last Filed: 07/31/21 23:58> Cosign ED Attending Cosignature Attestation: I was immediately available in the department for consultation. Documentation has been reviewed. I agree with assessment and plan.
[2021-07-28] MEDS: predniSONE 20 MG TABLET 60 MG PO (17:12)
[2021-07-28] MEDS: KETOROLAC 30 MG/ML VIAL IM (17:12)
[2021-07-28] MEDS: methocarbamoL 500 MG TABLET PO (17:12)
[2021-07-28] MEDS: LIDOCAINE PATCH 1 EACH ADH..PATCH TOP (17:13)
[2021-07-28 18:23] VITALS: BP 123/79; PULSE 71; RESP 18; O2SAT 97
== END 2021-07-28 18:25 | disposition home or self-care (01) ==
PROVIDERS: Emergency Provider Nurse Practitioner Critical Care Medicine; PCP Internal Medicine
DX: S39.012A Strain of muscle, fascia and tendon of lower back, initial encounter (principal); X58.XXXA Exposure to other specified factors, initial encounter
CPT/HCPCS: 72100; 96372; 99283; J1885

== ENCOUNTER 2021-11-11 16:18 | Emergency (ER) | payer OTHER, SELFPAY ==
[2021-11-11 16:27] VITALS: BP 116/76; PULSE 66; RESP 16; TEMP 36.4; O2SAT 97
--- NOTE | 2021-11-11 18:44 | ED.BACK ---
HPI - Back Pain/Injury <Ashlee Sales, [facility] [place] - Last Filed: 11/11/21 18:53> General Chief Complaint: Back Pain/Injury Stated Complaint: states back is out Time Seen by Provider: 11/11/21 17:47 Source: patient History of Present Illness HPI Narrative: This is a 56-year-old male who presents to the emergency department complaining of acute exacerbation of his chronic low back pain. Patient states that he has had flares of this in the past and has received steroids, muscle relaxers, and lidocaine patches which were all helpful. Patient states that it has been flared up for the last 3 days, and any movement exacerbates it. He states that he bent over to tie his shoe and just like that he was in pain. He denies any weakness, incontinence, sensation changes, or trauma. He has had x-rays of his lumbar spine in the past. He states he has been going to a chiropractor frequently recently, and has not had any relief. Related Data Home Medications Medication Instructions Recorded Confirmed Resmed Airsense 10 CPAP #1 ea 10/10/18 02/12/21 Previous Rx's Medication Instructions Recorded atorvastatin 20 mg tablet (Lipitor) 20 mg PO BEDTIME #90 tab 03/02/21 lidocaine 4 % topical patch 1 patch TOPICAL DAILY PRN #15 ea 07/28/21 methocarbamol 500 mg tablet 500 mg PO Q8H #20 tab 07/28/21 naproxen 250 mg tablet 250 mg PO BID PRN #20 tab 07/28/21 omeprazole 20 mg capsule,delayed 20 mg PO DAILY #10 cap 07/28/21 release prednisone 20 mg tablet 40 mg PO DAILY #10 tab 07/28/21 fluvoxamine 100 mg tablet 200 mg PO BEDTIME #60 tab 09/28/21 lidocaine 5 % topical patch 1 patch TOPICAL DAILY #15 ea 11/11/21 (Lidoderm) methocarbamol 500 mg tablet 500 mg PO BEDTIME PRN #20 tab 11/11/21 naproxen 250 mg tablet 250 mg PO BID PRN #20 tab 11/11/21 prednisone 20 mg tablet 40 mg PO BID #5 tab 11/11/21 prednisone 20 mg tablet 40 mg PO DAILY 5 Days #10 tab 11/11/21 tramadol 50 mg tablet (Ultram) 50 mg PO BID PRN #14 tab 11/11/21 Allergies Allergy/AdvReac Type Severity Reaction Status Date / Time No Known Drug Allergies Allergy Verified 02/12/21 15:52 Review of Systems <DENIS Becker - Last Filed: 11/11/21 18:53> Review of Systems Narrative: General: denies fever, chills, malaise, sweats, fatigue Head/Neck: denies headache, neck pain, dizziness Eyes: denies visual changes, eye pain Cardio: denies chest pain, palpitations, edema Respiratory: denies dyspnea, cough, orthopnea GI: denies abdominal pain, nausea, vomiting, or diarrhea : denies dysuria, hematuria, urinary retention, frequency or incontinence MSK: denies joint pain, muscle weakness, endorses low back pain on the right side without sciatica Skin: denies rash, itching, skin lesions or other Neuro: denies numbness, tingling Patient History <DENIS Becker - Last Filed: 11/11/21 18:53> Medical History Chicken pox (~1975) Chronic back pain (~1999) Chronic cough GERD (gastroesophageal reflux disease) (06/29/11) Obesity (02/04/11) Obesity (BMI 30-39.9) (~02/04/11) Obsessive compulsive disorder Obstructive sleep apnea Other and unspecified hyperlipidemia (06/29/11) Surgical History Anesthesia History of hernia repair (~2000) Torsion of left testicle Umbilical hernia (~11/2013) Family History Father History of heart disease Mother Stroke Social History marital status: details: Patient was adopted; family medical history unknown number of children: 5 household members: spouse and children lives independently: Yes caregiver/support person: No housing: house pets and animals: Yes education level: master's degree occupational status: employed current occupational exposures/hazards: Yes 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 General: cooperative, comfortable, in no acute distress, well developed and well groomed Head: atraumatic, symmetrical facial expressions Neck: supple, atraumatic, without lymphadenopathy. Eyes: pupils equal round and reactive, EOMI, conjunctiva normal Nose: nares patent, no rhinorrhea Mouth/Throat: uvula midline, moist mucus membranes Cardiovascular: regular rate and rhythm, no peripheral edema, warm extremities Respiratory: normal effort, able to speak in complete sentences, no audible wheezing, stridor, or rales. No retractions or tachypnea. GI: abdomen soft, nontender to palpation, nondistended, no masses, no exquisite tenderness with exam, without guarding or rebound. MSK: moves all extremities, ambulatory w/steady gait, neurovascularly intact, no weakness, leg lift exacerbates pain, no tenderness over lumbar spine Skin: brisk capillary refill, no rash, no erythema Neuro: normal speech and cognition, A&O x3, normal tone Psych: mental status is grossly normal, congruent mood, normal affect, pleasant and cooperative Initial Vital Signs Initial Vital Signs: Vital Signs Temperature 97.5 F L 11/11/21 16:27 Pulse Rate 66 11/11/21 16:27 Respiratory Rate 16 11/11/21 16:27 Blood Pressure 116/76 11/11/21 16:27 Pulse Oximetry 97 11/11/21 16:27 <Lexy Montana DO - Last Filed: 11/12/21 16:06> Initial Vital Signs Initial Vital Signs: Vital Signs Temperature 97.5 F L 11/11/21 16:27 Pulse Rate 66 11/11/21 16:27 Respiratory Rate 16 11/11/21 16:27 Blood Pressure 116/76 11/11/21 16:27 Pulse Oximetry 97 11/11/21 16:27 Course <DENIS Becker - Last Filed: 11/11/21 18:53> Orders Ordered: Discontinued Medications Hydrocodone Bitart/Acetaminophen (Hydrocodone/Acet 5/325 Tablet) 1 tab PO NOW ONE Stop: 11/11/21 18:08 Last Admin: 11/11/21 18:50 Dose: 1 tab Documented by: TRANG Ketorolac Tromethamine (Ketorolac 30 Mg/Ml Vial) 15 mg IM NOW ONE Stop: 11/11/21 18:08 Last Admin: 11/11/21 18:49 Dose: 15 mg Documented by: TRANG Lidocaine (Lidocaine Patch 1 Each Adh..Patch) 1 each TOP NOW ONE Stop: 11/11/21 18:08 Last Admin: 11/11/21 18:51 Dose: 1 each Documented by: TRANG Methocarbamol (Methocarbamol 500 Mg Tablet) 500 mg PO NOW ONE Stop: 11/11/21 18:08 Last Admin: 11/11/21 18:50 Dose: 500 mg Documented by: TRANG Prednisone (Prednisone 20 Mg Tablet) 40 mg PO NOW ONE Stop: 11/11/21 18:08 Last Admin: 11/11/21 18:50 Dose: 40 mg Documented by: TRANG Vital Signs Vital signs: Vital Signs - 8 hr 11/11/21 16:27 Temperature 97.5 F L Pulse Rate 66 Respiratory Rate 16 Blood Pressure 116/76 Pulse Oximetry 97 <Lexy Montana DO - Last Filed: 11/12/21 16:06> Orders Ordered: Discontinued Medications Hydrocodone Bitart/Acetaminophen (Hydrocodone/Acet 5/325 Tablet) 1 tab PO NOW ONE Stop: 11/11/21 18:08 Last Admin: 11/11/21 18:50 Dose: 1 tab Documented by: TRANG Ketorolac Tromethamine (Ketorolac 30 Mg/Ml Vial) 15 mg IM NOW ONE Stop: 11/11/21 18:08 Last Admin: 11/11/21 18:49 Dose: 15 mg Documented by: TRANG Lidocaine (Lidocaine Patch 1 Each Adh..Patch) 1 each TOP NOW ONE Stop: 11/11/21 18:08 Last Admin: 11/11/21 18:51 Dose: 1 each Documented by: TRANG Methocarbamol (Methocarbamol 500 Mg Tablet) 500 mg PO NOW ONE Stop: 11/11/21 18:08 Last Admin: 11/11/21 18:50 Dose: 500 mg Documented by: TRANG Prednisone (Prednisone 20 Mg Tablet) 40 mg PO NOW ONE Stop: 11/11/21 18:08 Last Admin: 11/11/21 18:50 Dose: 40 mg Documented by: TRANG Vital Signs Vital signs: Vital Signs - 8 hr 11/11/21 16:27 Temperature 97.5 F L Pulse Rate 66 Respiratory Rate 16 Blood Pressure 116/76 Pulse Oximetry 97 [facility] - Back Pain/Injury <DENIS Becker - Last Filed: 11/11/21 18:53> [facility] Narrative Medical decision making narrative: This is a 56-year-old male who presents emergency department with an exacerbation of his chronic low back pain which occurred 1 week ago. Patient denies fever, incontinence, weakness, sensation changes. Patient states he has had improvement in the past from steroids, muscle relaxers, NSAIDs. Patient has had 4 chiropractor appointments recently, he is encouraged to follow-up with Dr. Mccormack his primary care provider for referral to physical therapy and for advanced imaging if this is necessary. Multiple etiologies of back pain considered including; Epidural abscess, cauda equina, mass occupying lesion, lumbar fracture, intra-abdominal pathology chronic neuropathic pain and other considered. Patient has had prior imaging of his lumbar spine without new trauma, he does not have any symptoms of nerve impingement or cauda equina syndrome. He does not have any new weakness or sensation changes. Patient was treated with Toradol IM, lidocaine patch, hydrocodone x1 and methocarbamol. He was discharged with a prescription of prednisone x5 days, methocarbamol, Ultram, and lidocaine patches. Patient is appropriate and amenable to discharge home. Vital signs are stable on repeat examination is unremarkable. Patient has been informed of results. Patient has been given strict return to ER precautions for any new or worsening symptoms. Patient understands to follow up closely with outpatient providers as instructed. Patient understands plan and agrees to discharge home. All questions and concerns answered at this time. Discharge Plan Departure Patient Disposition: Home Clinical Impression: Acute back pain Qualifiers: Back pain location: low back pain Back pain laterality: right Sciatica presence: without sciatica Qualified Code(s): M54.50 - Low back pain, unspecified Instructions: DI for Low Back Pain, DI for Back Spasm Activity Restrictions/Additional Instructions: *You have been diagnosed with low back pain with an acute exacerbation. Please use the muscle relaxers at night to help you sleep, they might make you too sleepy to function well at school during the day. Please use lidocaine patches morning and night to help with this pain, heat and ice as tolerated, you can take naproxen morning and night starting tomorrow, Ultram as needed for your pain, lidocaine patches, and take 2 tabs of prednisone each day for the next 5 days. This should hopefully calm down your flare of pain, contact Dr. Mccormack as for referral to physical therapy and advanced imaging of your low back. Please return to the emergency department for any worsening of your symptoms, weakness, urinary retention, high fever, inability to walk, or any other new change. Thank you for trusting us with your care, I hope that this starts getting better soon. You can take Tylenol in addition to these medications but do not take any ibuprofen in addition to the naproxen. *What to do: *Please continue to take your regular medications as directed. [ x] New medication prescriptions sent to your pharmacy: [[facility] ] [ ] New medication written as a paper prescription [ ] No new medications given *Please follow up with your primary care provider in 2-3 days, call for an appointment. Let them know you were seen in the Emergency Department and that we asked that you be seen for follow-up. We will electronically transmit a record of today's note if your PCP is in our system *If you do not have a primary care provider please contact [phone] to establish care with one of the [facility] primary care providers. *Return to Emergency Department if you should have any new, worsening or concerning symptoms, such as [fever greater than 101F, chills, worsening pain, persistent vomiting or other bothersome symptoms] Prescriptions: New naproxen 250 mg tablet 250 mg PO BID PRN (Reason: pain) Qty: 20 0RF tramadol [Ultram] 50 mg tablet 50 mg PO BID PRN (Reason: pain) Qty: 14 0RF methocarbamol 500 mg tablet 500 mg PO BEDTIME PRN (Reason: muscle spasm) Qty: 20 0RF prednisone 20 mg tablet 40 mg PO BID Qty: 5 0RF prednisone 20 mg tablet 40 mg PO DAILY 5 Days Qty: 10 0RF lidocaine [Lidoderm] 5 % adhesive patch,medicated 1 patch topical DAILY Qty: 15 0RF Rx Instructions: leave on most painful area for up to 12 hrs No Action atorvastatin [Lipitor] 20 mg tablet 20 mg PO BEDTIME Qty: 90 1RF fluvoxamine 100 mg tablet 200 mg PO BEDTIME Qty: 60 3RF prednisone 20 mg tablet 40 mg PO DAILY Qty: 10 0RF naproxen 250 mg tablet 250 mg PO BID PRN (Reason: pain) Qty: 20 0RF omeprazole 20 mg capsule,delayed release(DR/EC) 20 mg PO DAILY Qty: 10 0RF lidocaine 4 % adhesive patch,medicated 1 patch topical DAILY PRN (Reason: pain) Qty: 15 0RF methocarbamol 500 mg tablet 500 mg PO Q8H Qty: 20 0RF (DME) Resmed Airsense 10 CPAP Qty: 1 0RF Dose Instruction: As directed Label Comments: Pressure: 6-12 cmH2O DME: [facility] Rx Instructions: As directed Referrals: Marquis Mccormack MD [Primary Care Provider] - <Lexy Montana DO - Last Filed: 11/12/21 16:06> Cosign ED Attending Cosignature Attestation: I was immediately available in the department for consultation. Documentation has been reviewed. I agree with assessment and plan.
[2021-11-11] MEDS: KETOROLAC 30 MG/ML VIAL 15 MG IM (18:49)
[2021-11-11] MEDS: HYDROCODONE/ACET 5/325 TABLET 1 TAB PO (18:50)
[2021-11-11] MEDS: predniSONE 20 MG TABLET 40 MG PO (18:50)
[2021-11-11] MEDS: methocarbamoL 500 MG TABLET PO (18:50)
[2021-11-11] MEDS: LIDOCAINE PATCH 1 EACH ADH..PATCH TOP (18:51)
== END 2021-11-11 19:00 | disposition home or self-care (01) ==
PROVIDERS: Emergency Provider Nurse Practitioner Critical Care Medicine; PCP Internal Medicine
DX: M54.50 Low back pain, unspecified (principal)
CPT/HCPCS: 96372; 99283; J1885

== ENCOUNTER 2022-06-10 00:13 | Emergency (ER) | payer OTHER, SELFPAY ==
[2022-06-10 00:28] VITALS: BP 104/61; PULSE 69; RESP 16; TEMP 36.8; O2SAT 100; BMI 65.3
--- NOTE | 2022-06-10 03:16 | ED_ITS ---
HPI - Back Pain/Injury General Chief Complaint: Back Pain/Injury Stated Complaint: back is out can't walk Time Seen by Provider: 06/10/22 03:16 Source: patient History of Present Illness HPI Narrative: 56-year-old gentleman with a history of hyperlipidemia and chronic low back pain. For the back pain he has been to physical therapy and has had acute flares every 6 months. He is finding that the flares are becoming more frequent, take less activity to cause, are lasting longer and causing more pain. He has not had any advanced imaging of his spine. Reports no recent trauma. He states he was simply walking and could feel the area beginning to tighten and over the ensuing 810 days pain has gotten significantly worse to the point he is having trouble even getting out of a chair at this point. He is not complaining of radicular pain, no fevers or infection. No red flags for epidural abscess. No bowel or bladder problems no perineal numbness. Related Data Home Medications Medication Instructions Recorded Confirmed Resmed Airsense 10 CPAP #1 ea 10/10/18 04/13/22 Previous Rx's Medication Instructions Recorded fluvoxamine 100 mg tablet 300 mg PO BEDTIME #270 tabs 04/01/22 atorvastatin 20 mg tablet (Lipitor) 20 mg PO BEDTIME #90 tabs 04/13/22 dexamethasone 4 mg tablet 10 mg PO DAILY #5 tabs 06/10/22 oxycodone-acetaminophen 5 mg-325 1 tab PO Q6H PRN pain #14 tabs 06/10/22 mg tablet Allergies Allergy/AdvReac Type Severity Reaction Status Date / Time No Known Drug Allergies Allergy Verified 04/13/22 15:35 Review of Systems Review of Systems Narrative: Remainder of complete review of systems is otherwise unremarkable except for that included in the HPI. Patient History Medical History Chicken pox (~1975) Chronic back pain (~1999) Chronic cough GERD (gastroesophageal reflux disease) (06/29/11) Obesity (02/04/11) Obesity (BMI 30-39.9) (~02/04/11) Obsessive compulsive disorder Obstructive sleep apnea Other and unspecified hyperlipidemia (06/29/11) Surgical History Anesthesia History of hernia repair (~2000) Torsion of left testicle Umbilical hernia (~11/2013) Family History Father History of heart disease Mother Stroke Social History marital status: details: Patient was adopted; family medical history unknown number of children: 5 household members: spouse and children lives independently: Yes caregiver/support person: No housing: house pets and animals: Yes education level: master's degree occupational status: employed current occupational exposures/hazards: Yes 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 leisure activities: sports, music and fishing Smoking Status: Former smoker Tobacco: How many years used: 15 Smokeless tobacco user: other quit status: quit date established alcohol intake: current substance use type: does not use Smoking Status: Former smoker alcohol intake frequency: holidays/special occasions only Substance Use Type: does not use Exam Initial Vital Signs Initial Vital Signs: Vital Signs Temperature 98.2 F 06/10/22 00:28 Pulse Rate 69 06/10/22 00:28 Respiratory Rate 16 06/10/22 00:28 Blood Pressure 104/61 06/10/22 00:28 Pulse Oximetry 100 06/10/22 00:28 Oxygen Delivery Method 06/10/22 00:28 General: Alert appropriate in moderate amount of pain Respiratory: Able to speak in full sentences, no obvious respiratory distress Skin: No obvious rashes, warm and dry. Low-back has no rashes abrasions or contusions. There is no midline point tenderness Neurologic: Grossly intact no obvious asymmetries or abnormalities, full sensation to lower extremities. Psych: appropriate insight and affect, cooperative Course Orders Ordered: Discontinued Medications Dexamethasone (Dexamethasone 4 Mg Tablet) 12 mg PO NOW ONE Stop: 06/10/22 03:26 Last Admin: 06/10/22 03:44 Dose: 12 mg Documented By: MYA Ketorolac Tromethamine (Ketorolac 30 Mg/Ml Vial) 30 mg IM NOW ONE Stop: 06/10/22 03:26 Last Admin: 06/10/22 03:46 Dose: 30 mg Documented By: MYA Oxycodone/Acetaminophen (Oxycodone/Acetaminophen 5/325 Tablet) 2 tab PO NOW ONE Stop: 12/08/22 03:26 Last Admin: 06/10/22 03:44 Dose: 2 tab Documented By: MYA Vital Signs Vital signs: Vital Signs - 8 hr 06/10/22 00:28 Temperature 98.2 F Pulse Rate 69 Respiratory Rate 16 Blood Pressure 104/61 Pulse Oximetry 100 Oxygen Delivery Method Room Air MDM - Back Pain/Injury MDM Narrative Medical decision making narrative: 56-year-old gentleman with acute exacerbation of his chronic back pain. He does not have any red flags to suggest diskitis, epidural abscess, cauda equina syndrome. No reason to suspect any type of metastatic disease and with no trauma imaging was not felt to be indicated at this time. He was given IM Toradol, 3 days of Decadron to help with inflammation, brief course of Percocet for the pain and instructions to follow-up with Dr. Mccormack. He is wondering if it might be time for MRI imaging and given the chronicity of the pain with the increasing frequency, intensity and duration along with the fact that he has done physical therapy in all appropriate conservative management an MRI may be warranted to help with strategic planning for treatment of his chronic back pain. He is safe for home discharge Discharge Plan Departure Patient Disposition: Home Clinical Impression: Acute exacerbation of chronic low back pain Instructions: DI for Back Strain or Sprain Activity Restrictions/Additional Instructions: Thank you for coming in today I am sorry that you are continuing to suffer with this back pain. In the emergency department you are given a shot of Toradol, your 1st of 3 days of Decadron. Decadron as a steroid to help with inflammation. I have also given you a prescription for Percocet which is oxycodone plus Tylenol to help with severe pain for the next 2-3 days. Prescriptions were electronically transmitted to [facility] Please schedule an appointment with Dr. Mccormack to discuss your recurrent back pain. If you find that you are getting worse or develop any new symptoms, please feel free to return to the emergency department for further evaluation. Prescriptions: New dexamethasone 4 mg tablet 10 mg PO DAILY Qty: 5 0RF oxycodone-acetaminophen 5-325 mg tablet 1 tab PO Q6H PRN (Reason: pain) Qty: 14 0RF No Action fluvoxamine 100 mg tablet 300 mg PO BEDTIME Qty: 270 3RF atorvastatin [Lipitor] 20 mg tablet 20 mg PO BEDTIME Qty: 90 3RF (DME) Resmed Airsense 10 CPAP Qty: 1 Dose Instruction: As directed Label Comments: Pressure: 6-12 cmH2O DME: [facility] Rx Instructions: As directed Referrals: Marquis Mccormack MD [Primary Care Provider] -
[2022-06-10] MEDS: dexAMETHasone 4 MG TABLET 12 MG PO (03:44)
[2022-06-10] MEDS: OXYCODONE/ACETAMINOPHEN 5/325 TABLET 2 TAB PO (03:44)
[2022-06-10] MEDS: KETOROLAC 30 MG/ML VIAL IM (03:46)
[2022-06-10 04:41] VITALS: BP 145/88; PULSE 73; RESP 16; O2SAT 97
== END 2022-06-10 04:41 | disposition home or self-care (01) ==
PROVIDERS: Emergency Provider Emergency Medicine; PCP Internal Medicine
DX: M54.50 Low back pain, unspecified (principal); G89.29 Other chronic pain
CPT/HCPCS: 96372; 99283; J1885

== ENCOUNTER 2022-06-12 15:09 | Emergency (ER) | payer OTHER, SELFPAY ==
[2022-06-12 15:36] VITALS: BP 113/57; PULSE 74; RESP 18; TEMP 37.3; O2SAT 96; BMI 31.1
--- NOTE | 2022-06-12 16:21 | ED.BACK ---
HPI - Back Pain/Injury General Chief Complaint: Back Pain/Injury Stated Complaint: Back Went Out Time Seen by Provider: 06/12/22 16:05 Source: patient Mode of arrival: Ambulatory History of Present Illness HPI Narrative: 56-year-old male who is here for evaluation of lower back discomfort. Was seen here in the emergency department a couple days ago for the same symptoms. He was sent home on pain medication and also steroids. He continues to have back discomfort. It does hurt when he moves or touches it. Does not radiate down to his leg. He has had muscle relaxers in the past what he states has helped his symptoms. He has a follow-up with his primary doctor on Tuesday of next week. Related Data Home Medications Medication Instructions Recorded Confirmed Resmed Airsense 10 CPAP #1 ea 10/10/18 04/13/22 Previous Rx's Medication Instructions Recorded fluvoxamine 100 mg tablet 300 mg PO BEDTIME #270 tabs 04/01/22 atorvastatin 20 mg tablet (Lipitor) 20 mg PO BEDTIME #90 tabs 04/13/22 dexamethasone 4 mg tablet 10 mg PO DAILY #5 tabs 06/10/22 oxycodone-acetaminophen 5 mg-325 1 tab PO Q6H PRN pain #14 tabs 06/10/22 mg tablet cyclobenzaprine 10 mg tablet 10 mg PO TID PRN muscle spasm #21 06/12/22 tabs oxycodone-acetaminophen 5 mg-325 1 tab PO Q4-6H PRN pain #14 tabs 06/12/22 mg tablet prednisone 20 mg tablet 20 mg PO DAILY 7 days #7 tabs 06/12/22 Allergies Allergy/AdvReac Type Severity Reaction Status Date / Time No Known Drug Allergies Allergy Verified 06/12/22 15:41 Review of Systems Constitutional Constitutional: Reports system reviewed and no additional complaints, except as documented Musculoskeletal Musculoskeletal: Reports system reviewed and no additional complaints, except as documented Integumentary/Breasts Skin/Breast: Reports system reviewed and no additional complaints, except as documented Hematologic/Lymphatic On Anticoagulants: No Patient History Medical History Chicken pox (~1975) Chronic back pain (~1999) Chronic cough GERD (gastroesophageal reflux disease) (06/29/11) Obesity (02/04/11) Obesity (BMI 30-39.9) (~02/04/11) Obsessive compulsive disorder Obstructive sleep apnea Other and unspecified hyperlipidemia (06/29/11) Surgical History Anesthesia History of hernia repair (~2000) Torsion of left testicle Umbilical hernia (~11/2013) Family History Father History of heart disease Mother Stroke Social History marital status: details: Patient was adopted; family medical history unknown number of children: 5 household members: spouse and children lives independently: Yes caregiver/support person: No housing: house pets and animals: Yes education level: master's degree occupational status: employed current occupational exposures/hazards: Yes 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: [employer] leisure activities: sports, music and fishing Smoking Status: Former smoker Tobacco: How many years used: 15 Smokeless tobacco user: other quit status: quit date established alcohol intake: current substance use type: does not use Smoking Status: Former smoker alcohol intake frequency: holidays/special occasions only Substance Use Type: does not use Exam Initial Vital Signs Initial Vital Signs: Vital Signs Temperature 99.1 F 06/12/22 15:36 Pulse Rate 74 06/12/22 15:36 Respiratory Rate 18 06/12/22 15:36 Blood Pressure 113/57 L 06/12/22 15:36 Pulse Oximetry 96 06/12/22 15:36 Oxygen Delivery Method 06/12/22 15:36 [facility] Head: normal to inspection and normocephalic Skin General: no rashes or lesions noted Neuro General: patient alert, patient awake and moves all extremities Course Orders Ordered: Discontinued Medications Hydromorphone HCl (Hydromorphone 1 Mg Inj) 1 mg IM NOW ONE Stop: 06/12/22 16:22 Last Admin: 06/12/22 17:04 Dose: 1 mg Documented By: WILLIAM Vital Signs Vital signs: Vital Signs - 8 hr 06/12/22 15:36 06/12/22 17:33 Temperature 99.1 F Pulse Rate 74 57 L Respiratory Rate 18 18 Blood Pressure 113/57 L 120/72 Pulse Oximetry 96 95 Oxygen Delivery Method Room Air Room Air MDM - Back Pain/Injury MDM Narrative Medical decision making narrative: Patient continues to have discomfort. His back was not evaluated today is he is had no new symptoms. Will send the patient home on a continued course of steroids. Also will refill his pain medication. Will start him on muscle relaxers and have the patient follow-up with primary provider Discharge Plan Departure Patient Disposition: Home Clinical Impression: Lumbar back pain Instructions: DI for Low Back Pain Prescriptions: New cyclobenzaprine 10 mg tablet 10 mg PO TID PRN (Reason: muscle spasm) Qty: 21 0RF oxycodone-acetaminophen 5-325 mg tablet 1 tab PO Q4-6H PRN (Reason: pain) Qty: 14 0RF prednisone 20 mg tablet 20 mg PO DAILY 7 Days Qty: 7 0RF No Action fluvoxamine 100 mg tablet 300 mg PO BEDTIME Qty: 270 3RF atorvastatin [Lipitor] 20 mg tablet 20 mg PO BEDTIME Qty: 90 3RF dexamethasone 4 mg tablet 10 mg PO DAILY Qty: 5 0RF oxycodone-acetaminophen 5-325 mg tablet 1 tab PO Q6H PRN (Reason: pain) Qty: 14 0RF (DME) Resmed Airsense 10 CPAP Qty: 1 Dose Instruction: As directed Label Comments: Pressure: 6-12 cmH2O DME: [facility] Rx Instructions: As directed Referrals: Marquis Mccormack MD [Primary Care Provider] - Visit Report Forms: Patient Portal/API
[2022-06-12] MEDS: HYDROMORPHONE 1 MG INJ IM (17:04)
[2022-06-12 17:33] VITALS: BP 120/72; PULSE 57; RESP 18; O2SAT 95
== END 2022-06-12 17:34 | disposition home or self-care (01) ==
PROVIDERS: Emergency Provider Emergency Medicine; PCP Internal Medicine
DX: M54.50 Low back pain, unspecified (principal)
CPT/HCPCS: 96372; 99283; J1170

== ENCOUNTER → 2022-06-18 09:37 | Outpatient (CLI) | payer OTHER, SELFPAY ==
--- NOTE | 2022-06-18 10:57 | DI.RAD.S_ITS ---
PROCEDURE: XR LUMBAR SPINE 2-3V INDICATIONS: back pain TECHNIQUE: 3 views of the lumbar spine were acquired. COMPARISON: [facility], , XR LUMBAR SPINE 2-3V, 07/28/2021, 16:51. FINDINGS: Bones: 5 [id number] vertebrae are present. Mild 3 mm grade 1 retrolisthesis of L2 on L3. No vertebral body compression fractures. No suspicious bony lesions. Multilevel mild disc space narrowing degenerative endplate changes are present. Facet hypertrophy is seen from L2-3 through L5-S1. Soft tissues: Overlying bowel gas pattern is normal. No suspicious soft tissue calcifications. IMPRESSION: 1. [id number] multilevel spondylosis. MRI of the lumbar spine could be performed for further evaluation if indicated clinically. 2. Mild grade 1 retrolisthesis of L2 on L3. Approved by: Roge Carvajal M.D. on 06/18/2022 at 13:47
[2022-06-18 12:25] LABS: HEMOLYSIS < 15 (0-50)
[2022-06-18 12:39] LABS: Alanine Aminotransferase 80 IU/L (<50); Albumin 4.2 g/dL (3.5-5.0); Albumin Globulin Ratio 1.4 (1.0-2.8); Alkaline Phosphatase 64 U/L (38-126); Aspartate Aminotransferase 31 IU/L (17-59); Bilirubin Total 0.6 mg/dL (0.2-1.3); Blood Urea Nitrogen 25 mg/dL (9-20); Calcium 9.2 mg/dL (8.4-10.2); Carbon Dioxide 31 mmol/L (22-32); Chloride 97 mmol/L (98-107); Cholesterol 173 mg/dL (140-199); Estimated Glomerular Filt Rate 55 mL/min (>60); Globulin 3.1 g/dL (1.7-4.1); Glucose 74 mg/dL (70-100); HDL Cholesterol 70 mg/dL (40-60); LDL Cholesterol Calculated 74 mg/dL (<100); Potassium 3.8 mmol/L (3.4-5.1); Sodium 138 mmol/L (137-145); Total Protein 7.3 g/dL (6.3-8.2); Triglycerides 146 mg/dL (35-150)
[2022-06-18 15:51] LABS: Prostate Specific Antigen Scrn 0.376 ng/mL (0.1-4.0)
== END ==
PROVIDERS: PCP Internal Medicine; Referring Provider Internal Medicine; Visit Provider Internal Medicine
DX: E78.5 Hyperlipidemia, unspecified (principal); K21.9 Gastro-esophageal reflux disease without esophagitis; Z12.5 Encounter for screening for malignant neoplasm of prostate; R05.9 Cough, unspecified
CPT/HCPCS: 36415; 72100; 80053; 80061; G0103

== ENCOUNTER 2022-10-05 07:55 | Day surgery (SDC) | payer OTHER, SELFPAY ==
[2022-10-05 08:16] VITALS: BMI 30.7
[2022-10-05] MEDS: LACTATED RINGERS 1,000 ML 150 ML IV (08:26)
[2022-10-05 08:27] VITALS: BP 119/79; PULSE 65; RESP 16; TEMP 36.3; O2SAT 99
--- NOTE | 2022-10-05 08:38 | PM.HP.1 ---
History of Present Illness History of Present Illness Date Patient Seen: 10/05/22 Time Patient Seen: 08:38 [place] [facility] [place]ative: First colonoscopy for colon cancer screening. He is adopted and does not know his family history. Has no current symptoms [facility] Medical History Chicken pox (~1975) Chronic back pain (~1999) Chronic cough GERD (gastroesophageal reflux disease) (06/29/11) Obesity (02/04/11) Obesity (BMI 30-39.9) (~02/04/11) Obsessive compulsive disorder Obstructive sleep apnea Other and unspecified hyperlipidemia (06/29/11) Surgical History Anesthesia History of hernia repair (~2000) Torsion of left testicle Umbilical hernia (~11/2013) Family History Father History of heart disease Mother Stroke Social History marital status: details: Patient was adopted; family medical history unknown number of children: 5 household members: spouse and children lives independently: Yes caregiver/support person: No housing: house pets and animals: Yes education level: master's degree occupational status: employed current occupational exposures/hazards: Yes 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, music and fishing Smoking Status: Former smoker Tobacco: How many years used: 15 Smokeless tobacco user: other quit status: quit date established alcohol intake: current substance use type: does not use Meds Home Medications and Allergies Home Medications Medication Instructions Recorded Confirmed Type Resmed Airsense 10 CPAP #1 ea 10/10/18 06/18/22 History fluvoxamine 100 mg tablet 300 mg PO BEDTIME #270 tabs 04/01/22 10/05/22 Rx atorvastatin 20 mg tablet (Lipitor) 20 mg PO BEDTIME #90 tabs 04/13/22 10/05/22 Rx Allergies Allergy/AdvReac Type Severity Reaction Status Date / Time No Known Drug Allergies Allergy Verified 10/05/22 08:15 Review of Systems Review of Systems ROS: Yes All systems reviewed with the patient and are negative except as otherwise documented Exam Vital Signs (past 8 hours): - 04/04/23 08:27 Temperature 97.4 F L Pulse Rate 65 Respiratory Rate 16 Blood Pressure 119/79 Pulse Oximetry 99 Oxygen Delivery Method Room Air Oxygen Delivery Method Room Air Const General: cooperative and healthy appearing [facility] Head: normocephalic and atraumatic Eyes General: appearance normal, both eyes and all related structures Sclera: sclerae normal Neck Neck: trachea midline Resp Effort & Inspection: normal respiratory effort and able to speak in complete sentences Cardio Rate: regular rate Rhythm: regular rhythm GI Palpation: soft Skin General: turgor normal Neuro General: patient alert, patient awake and patient oriented x3 Psych Appearance: grossly normal Mental Status: mental status grossly normal Judgment: judgment good Assessment & Plan Assessment & Plan narrative: Colon cancer screening using MAC Time Spent With Patient Time with patient: less than 30 minutes
--- NOTE | 2022-10-05 08:44 | PM.OP.COLON ---
Operative Date/Time/Diagnoses Date of procedure: 10/05/22 Time of procedure: 08:44 Pre-op diagnosis: Colon cancer screening Post-op diagnosis: same Procedure & Clinicians Study performed: Colonoscopy under MAC Same procedure as scheduled: Yes Indications: Colon cancer screening Surgeon: Brionna Barajas Procedure Notes Procedure in detail: Preop diagnosis: Colon cancer screening Postop diagnosis: Same Operative procedure: Colonoscopy under MAC Surgeon: Pauline Barajas MD Findings: Chin diverticulosis both large and small. No polyps Procedure: Patient placed in a lateral position. Rectal exam performed showing normal tone no masses. Colonoscope was inserted into the rectum and advanced to ileocecal valve with minimal difficulty. Insufflation extraction scope including retroflex in the rectum had the above findings. Impression: Chin diverticulosis both small and large. No polyps Plan: Repeat colonoscopy in 10 years unless otherwise indicated by change in clinical condition. High-fiber diet to avoid further enlargement of existing diverticuli Findings: divertiulosis Specimen(s): none sent Complications: none Post-procedure Recommendations: Colonoscopy in 10 years Follow up: as needed Disposition: PACU
[2022-10-05 09:05] VITALS: BP 94/65; PULSE 77; RESP 18; TEMP 36.3; O2SAT 96
[2022-10-05 09:11] VITALS: BP 94/66; PULSE 75; RESP 17; TEMP 36.3; O2SAT 95
[2022-10-05 09:17] VITALS: BP 109/78; PULSE 81; RESP 18; TEMP 36.2; O2SAT 95
[2022-10-05 09:21] VITALS: BP 112/81; PULSE 75; RESP 18; TEMP 36.4; O2SAT 96
== END 2022-10-05 09:29 | disposition home or self-care (01) ==
PROVIDERS: PCP Internal Medicine; Referring Provider Surgery; Visit Provider Surgery
PROC: 0DJD8ZZ Inspection of Lower Intestinal Tract, Via Natural or Artificial Opening Endoscopic (ICD-10-PCS; CPT 45378; principal; 2022-10-05 08:45)
DX: Z12.11 Encounter for screening for malignant neoplasm of colon (principal); K57.30 Diverticulosis of large intestine without perforation or abscess without bleeding
CPT/HCPCS: 45378; J2704

== ENCOUNTER → 2023-09-05 09:51 | Outpatient (CLI) | payer OTHER, SELFPAY ==
--- NOTE | 2023-09-05 09:53 | DI.RAD.S_ITS ---
PROCEDURE: XR CHEST 2V INDICATIONS: wheezing TECHNIQUE: 2 views of the chest were acquired. COMPARISON: [facility], CR, XR CHEST 1V, 05/10/2019, 14:50. FINDINGS: Surgical changes and devices: None. Lungs and pleura: Lungs appear clear. No pleural effusions or pneumothorax. Mediastinum: Mediastinal contours are unchanged. Heart size is within normal limits. Bones and chest wall: No suspicious bony abnormalities. Soft tissues appear unremarkable. IMPRESSION: No acute cardiopulmonary abnormality is seen. Dictated by: Gibson Lilly M.D. on 09/05/2023 at 10:10 Approved by: Gibson Lilly M.D. on 09/05/2023 at 10:12
== END ==
LOC: RAD 09:52
PROVIDERS: PCP Internal Medicine; Referring Provider Internal Medicine; Visit Provider Internal Medicine
DX: R06.2 Wheezing (principal)
CPT/HCPCS: 71046

== ENCOUNTER → 2023-09-24 10:52 | Outpatient (CLI) | payer OTHER, SELFPAY ==
[2023-09-24 11:46] LABS: Add Manual Diff / Slide Review NO; Basophils Absolute Auto 100 /uL (0-100); Basophils Percent Auto 1.4 % (0-2); Eosinophils Absolute Auto 300 /uL (0-450); Eosinophils Percent Auto 5.5 % (2-4); Hemoglobin 16.3 g/dL (13.5-17.5); Lymphocytes Absolute Auto 1600 /uL (1100-4500); Lymphocytes Percent Auto 31.2 % (25-40); Mean Corpuscular HGB Conc 34.7 % (30-36); Mean Corpuscular Volume 89.4 fL (80-100); Monocytes Absolute Auto 500 /uL (0-900); Neutrophils Absolute Auto 2700 /uL (1500-7000); Neutrophils Percent Auto 52.9 % (50-75); Platelet Count 217 X10^3/uL (150-400); Red Blood Cell Count 5.26 X10^6/uL (4.5-5.9); Red Cell Distribution Width 13.7 % (11.6-14.8); White Blood Cell Count 5.2 X10^3/uL (4.5-11.0)
[2023-09-24 12:01] LABS: Alanine Aminotransferase 34 IU/L (<50); Albumin 4.4 g/dL (3.5-5.0); Albumin Globulin Ratio 1.3 (1.0-2.8); Alkaline Phosphatase 62 U/L (38-126); Aspartate Aminotransferase 29 IU/L (17-59); BUN Creatinine Ratio 21.8 (6-22); Bilirubin Total 0.8 mg/dL (0.2-1.3); Blood Urea Nitrogen 26 mg/dL (9-20); Carbon Dioxide 30 mmol/L (22-32); Chloride 109 mmol/L (98-107); Cholesterol 173 mg/dL (140-199); Estimated Glomerular Filt Rate > 60 mL/min (>60); Globulin 3.3 g/dL (1.7-4.1); Glucose 103 mg/dL (80-110); HDL Cholesterol 54 mg/dL (40-60); HEMOLYSIS < 15 (0-50); LDL Cholesterol Calculated 104 mg/dL (<100); Potassium 5.3 mmol/L (3.4-5.1); Sodium 143 mmol/L (137-145); Total Protein 7.7 g/dL (6.3-8.2); Triglycerides 74 mg/dL (35-150)
[2023-09-24 12:08] LABS: NT-proBNP (BNP-Adult 18+) < 20 pg/mL (<125)
[2023-09-24 12:28] LABS: TSH w/ Reflex to FT4 2.38 uIU/mL (0.47-4.68)
[2023-09-24 12:29] LABS: Prostate Specific Antigen Scrn 0.385 ng/mL (0.1-4.0)
== END ==
LOC: LAB 10:53
PROVIDERS: PCP Internal Medicine; Referring Provider Internal Medicine; Visit Provider Internal Medicine
DX: E78.5 Hyperlipidemia, unspecified (principal); K21.9 Gastro-esophageal reflux disease without esophagitis; I50.9 Heart failure, unspecified; Z12.5 Encounter for screening for malignant neoplasm of prostate; R05.9 Cough, unspecified
CPT/HCPCS: 36415; 80053; 80061; 83880; 84443; 85025; G0103